=== PATIENT | female | born 1955 | race Caucasian/White ===

== ENCOUNTER 2016-08-13 12:34 | Observation (INO) | payer OTHER ==
[2016-08-13] MEDS ORDERED: IOPAMIDOL 370 (76%) 100 ML VIAL IV ONE (12:35)
[2016-08-13] MEDS ORDERED: ASPIRIN CHEWTAB 81 MG TABLET ONE (13:06)
[2016-08-13 13:17] LABS: ABSOLUTE NEUTROPHIL COUNT 4.9 K/mm3 (1.8-7.7); BASO % 0.6 % (0.2-1.0); EOS # 0.1 (0.0-0.5); HEMATOCRIT 36.8 % (37.0-47.0); HEMOGLOBIN 12.3 gm/l (12.0-16.0); IMM NEUT% 0.3 % (0-1); LYMPH # 1.3 (1.0-4.8); LYMPH % 18.9 % (15-45); MEAN CELL VOLUME 90.4 fl (81.0-99.0); MEAN CORPUSCULAR HEMOGLOBIN 30.2 pg (27.0-31.0); MEAN CORPUSCULAR HGB CONC 33.4 g/dl (33.0-37.0); MEAN PLATELET VOLUME 10.4 fl (7.4-10.4); MONO # 0.5 (0.0-0.8); NEUT % 71.2 % (43-75); PLATELET COUNT 241 K/mm3 (130-400)
[2016-08-13 13:26] LABS: ALB/GLOB RATIO 1.7 (>1.0); ALBUMIN 4.5 gm/dL (3.5-5.7); CALCIUM 9.6 mg/dL (8.6-10.3)
[2016-08-13 13:33] LABS: TROPONIN I < 0.01 ng/ml (0.0-0.06)
[2016-08-13 13:37] LABS: CKMB ISOENZYME 1.6 ng/ml (0.6-6.3)
--- NOTE | 2016-08-13 16:25 | CT ---
INDICATION: Left-sided chest pain COMPARISON: None. TECHNIQUE: Helical scan mode CT of the Thorax with 2 mm collimated images were obtained after uneventful intravenous contrast administration of 80 of Isovue-370. Sagittal and coronal reformations with high resolution lung algorithm images were also created at this time. Maximal intensity projection images and 3-D volumetric sequences were created at a separate, dedicated workstation. DLP: 293.8 FINDINGS: There are no pulmonary arterial filling defects. Mild cardiomegaly is thought to be present. The lung parenchyma is normal. No pleural effusion. The central airways are widely patent. There is no axillary, mediastinal or hilar adenopathy. The heart and great vessels opacify normally. Limited evaluation of the upper abdomen demonstrates no gross abnormalities. Review of bone windows demonstrates no osteoblastic or lytic lesions. IMPRESSION: 1. Negative for pulmonary embolism. Report was uploaded to the electronic medical record at approximately 1622 hours on 08/13/2016.
[2016-08-13] MEDS ORDERED: SODIUM CHLORIDE 0.9% 100 ML IV PRN (16:33)
[2016-08-13] MEDS ORDERED: BLISTEX LIPSTICK 1 EACH TP PRN (16:33)
[2016-08-13] MEDS ORDERED: MAGNESIUM HYDROXIDE 30 ML UDCUP PO PRN (16:33)
[2016-08-13] MEDS ORDERED: MENTHOL/CETYLPYRD 1 EACH LOZENGE PO PRN (16:33)
[2016-08-13] MEDS ORDERED: BISACODYL 10 MG SUP PR PRN (16:33)
[2016-08-13] MEDS ORDERED: ACETAMINOPHEN 325 MG TABLET PO PRN (16:33)
[2016-08-13] MEDS ORDERED: BISACODYL 5 MG TABLET.EC PO PRN (16:33)
[2016-08-13 17:42] VITALS: BMI 21.7
[2016-08-13] MEDS ORDERED: LORAZEPAM 0.5 MG TABLET PO PRN (19:04)
[2016-08-13 19:40] LABS: URINE BILIRUBIN NEGATIVE (NEGATIVE); URINE BLOOD NEGATIVE (NEGATIVE); URINE GLUCOSE (UA) NEGATIVE (NEGATIVE); URINE LEUKOCYTE ESTERASE NEGATIVE (NEGATIVE); URINE NITRITE NEGATIVE (NEGATIVE); URINE PROTEIN NEGATIVE (NEGATIVE); URINE UROBILINOGEN NORMAL (0-1 mg/dl)
[2016-08-13 19:42] LABS: URINE APPEARANCE CLEAR; URINE COLOR STRAW
[2016-08-13 19:50] LABS: URINE BACTERIA 0; URINE EPITHELIAL CELLS FEW /hpf; URINE RBC 0-1 /hpf; URINE WBC NEG /hpf
[2016-08-13] MEDS: DOCUSATE SODIUM 100 MG CAPSULE PO SCH (20:33)
[2016-08-14 05:58] LABS: CHOLESTEROL RISK RATIO 2.8 (3.7-5.6)
[2016-08-14 07:16] VITALS: BP 127/68
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
[2016-08-14] MEDS ORDERED: HYDROCHLOROTHIAZIDE 25 MG TABLET PO SCH (09:00)
[2016-08-14] MEDS ORDERED: LISINOPRIL 5 MG TABLET PO SCH (09:00)
--- NOTE | 2016-08-14 10:05 | NUC MED ---
MYOCARDIAL PERFUSION STUDY HISTORY: Chest pain. Jesu stress protocol was utilized. Triplanar orthogonal images were reconstructed from SPECT acquisitions during rest and stress phases, gated SPECT acquisition during stress imaging utilized to assess wall motion and ejection fraction. 37.2 mCi of technetium labeled sestamibi was utilized during stress imaging. 11.1mCi of technetium labeled sestamibi was utilized during rest imaging. Imaging was reconstructed on a dedicated workstation WALL MOTION: Grossly concentric. EJECTION FRACTION: 69%. PERFUSION DEFECTS: No dominant perfusion defect identified on stress or rest imaging. ABNORMAL RIGHT HEART UPTAKE: None identified. LEFT VENTRICULAR CAVITY DILATATION WITH STRESS: Not identified. IMPRESSION: No scintigraphic evidence of focal inducible ischemia or focal infarct. Grossly concentric wall motion, ejection fraction 69%. Findings discussed with Dr. Rowe of the hospitalist clinical service on 08/14/2016 at 1002 hours.
[2016-08-14] MEDS: DOCUSATE SODIUM 100 MG CAPSULE PO SCH (10:12)
--- NOTE | 2016-08-14 13:39 | DS ---
Jayshree Ng [id number] DATE OF ADMISSION: 08/13/2016 DATE OF DISCHARGE: 08/14/2016 DISCHARGE DIAGNOSES: 1. Atypical chest pain. 2. Chronic essential hypertension. 3. Generalized anxiety disorder. PROCEDURES PERFORMED DURING THE HOSPITALIZATION: Included a Jesu protocol myocardial perfusion scan showing normal myocardial perfusion and no reversal ischemia, normal wall motion with an ejection fraction of 69%. TO SUMMARIZE THE ADMISSION AND HOSPITAL COURSE: The patient is a 61-year-old female with a history of chronic essential hypertension and anxiety who presented with complaints of left sided chest pains beginning at 11:00 a.m. on the day of admission. Initial workup showed negative cardiac enzymes and a normal EKG. She was referred to the hospitalist service for observation. Serial cardiac enzymes remained negative. She remained chest pain free. She underwent the myocardial perfusion study which was negative. She was felt to be medically stable for discharge. PHYSICAL EXAMINATION: VITALS: At discharge showed a temperature of 98.2, pulse 72, blood pressure 127/68, respirations 15, oxygen saturation 100% on room air. Body mass index 21.8, weight 59.4 kg. GENERAL: This is a well developed, well-nourished female in no acute distress. HEENT: Unremarkable. LUNGS: Clear to auscultation bilaterally. CARDIOVASCULAR: Revealed a regular rate and rhythm without a murmur. EXTREMITIES: Showed no peripheral edema. LABORATORY STUDIES: Showed a total cholesterol of 184 and LDL cholesterol of 99, HLD cholesterol is 66. DISPOSITION: Home. DISCHARGE CONDITION: Good. DISCHARGE DIET: Regular diet. ALLERGIES: She has no known drug allergies. DISCHARGE MEDICATIONS: Will include: 1. Lisinopril 5 mg daily. 2. Hydrochlorothiazide 25 mg by mouth daily. 3. Ativan 0.5 mg every 6 hours as needed for anxiety. 4. No new prescriptions were provided. FOLLOW UP: She will follow up with her primary care provider Dr. Alma Haas at [facility]. JOB: [id number] CC: Dr. Alma Haas at [facility]
== END 2016-08-14 11:05 | disposition home or self-care (01) ==
LOC: ED 12:34 → MS 15:54 → ICU 19:03
PROVIDERS: ADMIT Family Medicine; ATTEND Family Medicine
DX: R07.89 Other chest pain (principal); F17.210 Nicotine dependence, cigarettes, uncomplicated; F12.20 Cannabis dependence, uncomplicated; F41.1 Generalized anxiety disorder
CPT/HCPCS: 83690; 83880; 85025; 82550; 82553; 80053; 80061; 84484 ×4; 81001; 36415 ×2; 78452; 71275; 99285 ×2; 93017; 93005 ×2; A9270 ×5; Q9967; A9500; G0378 ×2